=== PATIENT | female | born 1985 | race American Indian/Alaskan Native ===

== ENCOUNTER 2016-10-26 20:32 | Outpatient (CLI) | payer MEDICAID ==
[2016-10-26 21:53] VITALS: BP 111/71
[2016-10-26] MEDS ORDERED: LACTATED RINGERS 500 ML IV ONE (22:06)
[2016-10-26 23:11] LABS: Bilirubin,Urine NEG (Negative); Blood,Urine NEG (Negative); Ketones,Urine 20 mg/dL (Negative); Leukocyte Esterase,Urine TR (Negative); Mucus,Urine 1+ /HPF; Nitrite,Urine NEG (Negative); Protein,Urine <15 mg/dL mg/dL (Negative); Urobilinogen,Urine < 2.0 mg/dL (<2.0); WBC,Urine < 1.0 /HPF (0.0-6.0)
== END 2016-10-26 23:19 | disposition home or self-care (01) ==
LOC: TRG 20:32
PROVIDERS: ATTEND Obstetrics & Gynecology
DX: O99.333 Smoking (tobacco) complicating pregnancy, third trimester (principal); O26.893 Other specified pregnancy related conditions, third trimester; R10.9 Unspecified abdominal pain; Z3A.33 33 weeks gestation of pregnancy
CPT/HCPCS: 81001

== ENCOUNTER 2017-11-01 01:44 | Emergency (ER) | payer MEDICAID, OTHER ==
[2017-11-01 02:30] LABS: Bilirubin,Urine Negative (Negative); Color,Urine Yellow (Yellow)
[2017-11-01 02:31] LABS: Blood,Urine Negative (Negative); Urobilinogen,Urine < 2.0 mg/dL (<2.0)
[2017-11-01 02:32] LABS: Calcium Oxalate Crystals,Urine 3+; Mucus,Urine 1+ /HPF
[2017-11-01 03:23] LABS: Basophils % (Auto) 0.6 % (0.0-1.8); Eosinophils # (Auto) 0.2 K/mm3 (0.0-0.4); Eosinophils % (Auto) 2.8 % (0.0-4.3); Hemoglobin 9.8 gm/dl (10.1-14.3); Lymphocytes # (Auto) 1.9 K/mm3 (1.2-5.4); Mean Corpuscular HGB Conc 33 % (30-34); Mean Corpuscular Hemoglobin 27 pg (28-32); Mean Corpuscular Volume 82 fl (79-97); Mean Platelet Volume 7.1 fl (6-12); Monocytes # (Auto) 0.5 K/mm3 (0.0-0.8); Monocytes % (Auto) 7.4 % (0.0-7.3); Platelet Count 370 K/mm3 (140-440); Red Blood Count 3.65 M/mm3 (3.65-5.03); Red Cell Distribution Width 18.7 % (13.2-15.2)
[2017-11-01 03:29] LABS: BUN/Creatinine Ratio 26; Blood Urea Nitrogen 13 mg/dL (7-17); Calcium 8.7 mg/dL (8.4-10.2)
[2017-11-01 03:30] LABS: Alanine Aminotransferase 8 units/L (7-56); Albumin 3.4 g/dL (3.9-5); Hemolysis Index 1
--- NOTE | 2017-11-01 06:13 | Emergency Department Report ---
ED Abdominal Pain HPI - General Chief Complaint: Abdominal Pain Stated Complaint: ABD PAIN Time Seen by Provider: 11/01/17 06:11 Source: patient Mode of arrival: Ambulatory Limitations: No Limitations - History of Present Illness Initial Comments: This is a 32-year-old female who is incarcerated. I was going to give her some IV fluid but she declined that after a single attempt at IV. She came to the emergency department for vague and not persistent lower abdominal pain associated with an episode of vomiting. She does not have any subsequent vomiting here. She states that she has been high risk for previous pregnancies due to hypertension. Her blood pressure was 118/67 here. She had no vaginal bleeding. She said no fever or chills. MD Complaint: abdominal pain -: minutes(s) Location: suprapubic Radiation: none Migration to: no migration Severity: mild, moderate Quality: other Consistency: now resolved Improves With: nothing Worsens With: nothing Associated Symptoms: denies other symptoms, vomiting - Related Data Previous Rx's Medication Instructions Recorded Last Taken Type Nitrofurantoin Monohyd/M-Cryst 100 mg PO BID #10 capsule 11/01/17 Unknown Rx [Macrobid 100 mg Capsule] Ondansetron [Zofran Odt] 4 mg PO Q6H PRN #7 tab.rapdis 11/01/17 Unknown Rx Allergies Allergy/AdvReac Type Severity Reaction Status Date / Time No Known Allergies Allergy Unverified 02/02/13 15:55 ED Review of Systems ROS: Stated complaint: ABD PAIN Other details as noted in HPI Constitutional: denies: chills, fever Eyes: denies: eye pain, eye discharge, vision change ENT: denies: ear pain, throat pain Respiratory: denies: cough, shortness of breath, wheezing Cardiovascular: denies: chest pain, palpitations Endocrine: no symptoms reported Gastrointestinal: abdominal pain, nausea. denies: diarrhea Genitourinary: denies: urgency, dysuria, discharge Musculoskeletal: denies: back pain, joint swelling, arthralgia Skin: denies: rash, lesions Neurological: denies: headache, weakness, paresthesias Psychiatric: denies: anxiety, depression Hematological/Lymphatic: denies: easy bleeding, easy bruising ED Past Medical Hx - Past Medical History Previous Medical History?: Yes Hx Hypertension: Yes Hx Congestive Heart Failure: No Hx Diabetes: No Hx Deep Vein Thrombosis: No Hx Renal Disease: No Hx Sickle Cell Disease: No Hx Seizures: No Hx Psychiatric Treatment: Yes (schizophrenia) Hx Asthma: No Hx COPD: No Hx HIV: No - Surgical History Past Surgical History?: Yes Additional Surgical History: 'can't think of surgeries right now' - Social History Smoking Status: Current Every Day Smoker Substance Use Type: Marijuana - Medications Home Medications: Home Medications Medication Instructions Recorded Confirmed Last Taken Type Nitrofurantoin Monohyd/M-Cryst 100 mg PO BID #10 capsule 11/01/17 Unknown Rx [Macrobid 100 mg Capsule] Ondansetron [Zofran Odt] 4 mg PO Q6H PRN #7 tab.rapdis 11/01/17 Unknown Rx ED Physical Exam - General Limitations: No Limitations General appearance: alert, in no apparent distress - Head Head exam: Present: atraumatic, normocephalic - Eye Eye exam: Present: normal appearance, PERRL, EOMI. Absent: scleral icterus - ENT ENT exam: Present: mucous membranes moist - Neck Neck exam: Present: normal inspection - Respiratory Respiratory exam: Present: normal lung sounds bilaterally. Absent: respiratory distress - Cardiovascular Cardiovascular Exam: Present: regular rate, normal rhythm. Absent: systolic murmur, diastolic murmur, rubs, gallop - GI/Abdominal GI/Abdominal exam: Present: soft, normal bowel sounds, organomegaly (consistent with dates). Absent: distended, tenderness, guarding, rebound, rigid - Extremities Exam Extremities exam: Present: normal inspection - Back Exam Back exam: Present: normal inspection - Neurological Exam Neurological exam: Present: alert, oriented X3, CN II-XII intact. Absent: motor sensory deficit - Psychiatric Psychiatric exam: Present: normal affect, normal mood - Skin Skin exam: Present: warm, dry, intact, normal color. Absent: rash ED Course Vital Signs 11/01/17 11/01/17 11/01/17 01:46 04:46 06:36 Temperature 98.7 F Pulse Rate 94 H 88 72 Respiratory 18 18 18 Rate Blood Pressure 118/67 Blood Pressure 110/52 109/63 [Right] O2 Sat by Pulse 97 97 99 Oximetry 11/01/17 11/01/17 11/01/17 07:13 07:15 07:30 Temperature Pulse Rate Respiratory Rate Blood Pressure 84/44 99/67 Blood Pressure [Right] O2 Sat by Pulse 100 100 100 Oximetry 11/01/17 07:45 Temperature Pulse Rate Respiratory Rate Blood Pressure 108/68 Blood Pressure [Right] O2 Sat by Pulse 100 Oximetry - Reevaluation(s) Reevaluation #1: Patient is clinically stable. She is not vomiting. She can take by mouth. She was given Macrobid and tolerated that without difficulty. Her urine is equivocal. She will be given a prescription for a few Zofran and Macrobid. Urine culture is pending. OB follow-up is obviously indicated. 11/01/17 08:56 ED Medical Decision Making - Lab Data Result diagrams: 11/01/17 02:29 11/01/17 02:29 Laboratory Results - last 24 hr 11/01/17 11/01/17 11/01/17 02:18 02:29 02:29 WBC 6.8 RBC 3.65 Hgb 9.8 L Hct 30.0 L MCV 82 MCH 27 L MCHC 33 RDW 18.7 H Plt Count 370 Lymph % (Auto) 28.0 [place] % (Auto) 7.4 H Eos % (Auto) 2.8 Baso % (Auto) 0.6 Lymph # 1.9 [place]pson # 0.5 Eos # 0.2 Baso # 0.0 Seg Neutrophils % 31.2 L Seg Neutrophils # 4.2 Sodium 134 L Potassium 4.0 Chloride 101.4 Carbon Dioxide 22 Anion Gap 15 BUN 13 Creatinine 0.5 L Estimated GFR > 60 BUN/Creatinine Ratio 26 Glucose 92 Calcium 8.7 Total Bilirubin < 0.20 AST 13 ALT 8 Alkaline Phosphatase 53 Total Protein 6.4 Albumin 3.4 L Albumin/Globulin Ratio 1.1 HCG, Quant Urine Color Yellow Urine Turbidity Clear Urine pH 6.0 Ur Specific [place] 1.028 Urine Protein 30 mg/dl Urine Glucose (UA) Negative Urine Ketones Negative Urine Blood Negative Urine Nitrite Negative Urine Bilirubin Negative Urine Urobilinogen < 2.0 Ur Leukocyte Esterase Lg Urine WBC (Auto) 14.0 H Urine RBC (Auto) 5.0 U Epithel Cells (Auto) 13.0 Calcium Oxalate Crystal 3+ Urine Mucus 1+ 11/01/17 02:29 WBC RBC Hgb Hct MCV MCH MCHC RDW Plt Count Lymph % (Auto) [place] % (Auto) Eos % (Auto) Baso % (Auto) Lymph # [place] # Eos # Baso # Seg Neutrophils % Seg Neutrophils # Sodium Potassium Chloride Carbon Dioxide Anion Gap BUN Creatinine Estimated GFR BUN/Creatinine Ratio Glucose Calcium Total Bilirubin AST ALT Alkaline Phosphatase Total Protein Albumin Albumin/Globulin Ratio HCG, Quant 60620 H Urine Color Urine Turbidity Urine pH Ur Specific [place] Urine Protein Urine Glucose (UA) Urine Ketones Urine Blood Urine Nitrite Urine Bilirubin Urine Urobilinogen Ur Leukocyte Esterase Urine WBC (Auto) Urine RBC (Auto) U Epithel Cells (Auto) Calcium Oxalate Crystal Urine Mucus - Radiology Data Radiology results: report reviewed Critical care attestation.: If time is entered above; I have spent that time in minutes in the direct care of this critically ill patient, excluding procedure time. ED Disposition Clinical Impression: with 15 completed weeks gestation UTI (urinary tract infection) Qualifiers: Urinary tract infection type: site unspecified Hematuria presence: without hematuria Qualified Code(s): N39.0 - Urinary tract infection, site not specified Disposition: - TO HOME OR SELFCARE Is pt being admited?: No Does the pt Need Aspirin: No Condition: Stable Instructions: Abdominal Pain (ED), Urinary Tract Infection in Women (ED) Additional Instructions: Follow-up with dev manager as soon as possible. Return if acute change or problem. Prescriptions: Nitrofurantoin Monohyd/M-Cryst [Macrobid 100 mg Capsule] 100 mg PO BID #10 capsule Ondansetron [Zofran Odt] 4 mg PO Q6H PRN #7 tab.rapdis PRN Reason: nausea Referrals: PRIMARY CARE, [Primary Care Provider] - 3-5 Days dev manager, associated with [facility] or upon release [Other] - 3-5 Days Time of Disposition: 08:57
--- NOTE | 2017-11-01 06:29 | Ultrasound Report ---
FINAL REPORT EXAM: US OB > = 14 WEEKS FETUS HISTORY: lower ab pain, TECHNIQUE: Transabdominal imaging was obtained of the pelvis with Doppler interrogation of fetus. FINDINGS: There is a single viable intrauterine in breech presentation with an estimated gestational age of 15 weeks 1 day based on sonographic criteria. The heart rate is 164 BPM. The placenta is anterior and is grade 0. The amniotic fluid volume is normal. A complete survey of organs was not obtained. IMPRESSION: Single viable IUP, 15 weeks 1 day. The heart rate is 164 BPM.
[2017-11-01] MEDS ORDERED: NACL 0.9% 1000 ML 1,000 ML IV ONE (07:47)
[2017-11-01] MEDS ORDERED: ROCEPHIN/NS 1 GM/50 ML 1 GM/50 ML BAG IV ONE (07:48)
[2017-11-01 08:05] VITALS: BP 108/68
[2017-11-01] MEDS ORDERED: MACROBID ONE (08:39)
[2017-11-01] MEDS ORDERED: MACROBID PO ONE (09:00)
== END 2017-11-01 09:30 | disposition home or self-care (01) ==
LOC: ED 01:44 → EEVIPCON 01:44 → ED 09:30
DX: O23.42 Unspecified infection of urinary tract in pregnancy, second trimester (principal); O99.342 Other mental disorders complicating pregnancy, second trimester; F20.9 Schizophrenia, unspecified; I10 Essential (primary) hypertension; O99.332 Smoking (tobacco) complicating pregnancy, second trimester; Z3A.15 15 weeks gestation of pregnancy
CPT/HCPCS: 36415; 76805; 80053; 81001; 84702; 85025; 87086; 99284; J0696

== ENCOUNTER 2019-05-18 05:44 | Emergency (ER) | payer OTHER ==
[2019-05-18 06:03] VITALS: BP 131/99
--- NOTE | 2019-05-18 08:15 | Emergency Department Report ---
Chief Complaint: Upper Respiratory Infection Stated Complaint: CP/FLU LIKE SX/V/D Time Seen by Provider: 05/18/19 08:07 - HPI History of Present Illness: Patient reports cough congestion headache 2/10 located to the frontal area, runny nose, chills, body ache and pain with coughing to chest times one day. Denies any fever. No medication taken. Headache is 2/10 worse with coughing. Located at the front of her head to her forehead. Feels like pressure. She reports that facial pain. Clear drainage from nose. Denies any shortness of breath. No chest pain at rest only with coughing. Denies any sore throats, difficulty breathing, neck pain or stiffness. Denies any dizziness or blurred vision. Denies any nausea or vomiting. - ROS Review of Systems: All systems are negative except respiratory/HEENT positive cough, positive runny nose, positive postnasal drip, positive facial pain. Positive frontal headache. Negative fever, positive chills, Positive chest pain with coughing. - Exam Vital Signs: Vital Signs 05/18/19 05:53 Temperature 98.6 F Pulse Rate 95 H Respiratory 18 Rate Blood Pressure 131/99 O2 Sat by Pulse 97 Oximetry Physical Exam: Gen.: This is a 34-year-old female well-nourished well-developed in no acute distress. Vital signs are stable, afebrile Lungs: Clear to auscultate bilaterally, no rhonchi or wheezes or rales. Dry cough CV: S1, S2. Regular rate and rhythm. HEENT: Positive nasal congestion with nasal mucosal erythema. Maxillary and frontal sinus is nontender to palpate. Neck: Supple, full range of motion, normal examination MSE screening note: Focused history and physical exam performed. Due to findings the following was ordered: I discussed the patient that her condition is not emergent and that should based on my physical finding she is stable and will need to follow-up with urgent care or primary care. Patient discussed with doctor:: LINO SHARMA ED Medical Decision Making - Medical Decision Making I discussed the patient that her condition is not emergent and that should based on my physical finding she is stable and will need to follow-up with urgent care or primary care. Patient agreed and medical exam screening form signed. Patient was given multiple resources to follow up outpatient community clinic. Patient is stable and she agree to follow-up. I told her she needs to rest and drink a lot of fluid over the next 3 days. She agreed and discharged home in stable condition ED Disposition for MSE Clinical Impression: Acute viral sinusitis Disposition: MED SCREENING EXAM-LEFT Condition: Stable
== END 2019-05-18 08:43 | disposition left against medical advice (07) ==
LOC: ED 05:44
DX: J01.90 Acute sinusitis, unspecified (principal)
CPT/HCPCS: 99282